=== PATIENT | female | born 1980 | race Caucasian/White ===

== ENCOUNTER → 2016-08-29 | Outpatient (CLI) | payer OTHER ==
[~2016-08-29] MED LIST: CYCLAFEM PO; CYTOMEL5 MCG PO; LEVOTHROID(SYN75 MCG PO
== END | disposition disaster alternative care site (69) ==
LOC: GPOC 08-23 14:00
PROC: 0G9H3ZZ Drainage of Right Thyroid Gland Lobe, Percutaneous Approach (ICD-10-PCS; principal; 2016-08-29)
DX: E07.89 Other specified disorders of thyroid (principal)